=== PATIENT | female | born 2000 | race Caucasian/White ===

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

== ENCOUNTER 2022-01-10 11:28 | Outpatient (CLI) | payer OTHER, SELFPAY ==
[2022-01-16 13:25] LABS: HPV Reflexed? NOT INDICATED
== END 2022-01-10 23:59 | disposition home or self-care (01) ==
PROVIDERS: Visit Provider Obstetrics & Gynecology
DX: Z12.4 Encounter for screening for malignant neoplasm of cervix (principal); Z11.3 Encounter for screening for infections with a predominantly sexual mode of transmission
CPT/HCPCS: 88175; G0145

== ENCOUNTER 2024-03-19 14:00 | Outpatient (RCR) | payer OTHER, SELFPAY ==
--- NOTE | 2023-12-31 15:57 | HP.PTEVAL ---
Patient's Visit Information Visit Information Visit Information: MODE SOTO is a 23 year old F referred to Physical Therapy by NANCY Ferrell with a diagnosis of HIP FLEXOR STRAIN AND PELVIC TENSION. Date of Evaluation: 12/30/23 Physical Therapist: Sara Castillo, PT, Cert MDT Visit Plan Frequency: 1-2x /Week Duration: 2 Months Plan: MANUAL PELVIC FLOOR THERAPY FOR SOFT TISSUE MOBILIZATION AND TRIGGER POINT RELEASE. RELAXATION AND DOWN TRAINING OF PELVIC FLOOR. LEFT HIP MOBILIZATION AND STRENGTHENING. HOME INSTRUCTIONS FOR SELF TREATMENT. POSTURE TRAINING. STRESS INCONTINENCE AND URINARY FREQUENCY EDUCATION AND TRAINING. EDUCATION IN HEALTHY BLADDER HABBITS. 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 Disability: NO Present symptoms: URINARY LEAKING WITH COUGHING AND SNEEZING. FREQUENT URINATION. DIFFICULTY EMPTYING BLADDER. CHIEF COMPLAINT IS PAIN IN URETHRAL AREA WITH URINATION AND IN THE L GROIN AREA WITH WALKING OR HIKING. Present since: WITH UTI ABOUT 3 WKS FOR URETHRAL AREA AND L GROIN. Pain Scale: WORST 6/10, LEAST 0/10 Currently: 0/10 Is it getting better, worse or staying the same: STAYING THE SAME Commenced as a result of: UTI Better WITH: NOTHING FOUND SO FAR. Disturbed sleep: NO Previous history/Previous treatment: PELVIC FLOOR PT FOR PF TIGHTNESS ABOUT 3 YEARS AGO WITH GOOD RESULTS. STATES SHE DID NOT FOLLOW THROUGH WITH RECOMMENDATIONS BECAUSE SYMPTOMS WENT AWAY FOR AWHILE. THE SX'S CAME BACK A FEW MONTHS LATER BUT NOT QUITE BAD AND IT WASN'T CONVENIENT TO GO BACK TO THEREAPY SO HAS JUST DEALT WITH IT. STATES THEY TAUGHT HER HOW TO USE A DIALOTOR AND GAVE HER ONE TO TRY BUT SHE COULDN'T REALLY GET THE HANG OF IT AND GAVE UP. PATIENT REPORTS SAME L GROIN PAIN OFF AND ON ALL OF HER LIFE THAT COMES AND GOES IT PLEASES AND SHE HAS NEVER SOUGHT TREATMENT FOR IT. Treatment this episode: SELF TREATMENT INCLUDING CRANBERRY JUICE FOR UTI. ONE VISIT WITH [facility] AND URINE TEST WAS NEGATIVE. 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 Coughing/sneezing/straining: INTERMITTENTLY POSITIVE FOR URINARY LEAKING Gait: INTERMITTENT L GROIN PAIN How long can you delay the need to urinate: LONG NEEDED TO MAKE IT TO THE BATHROOM IN TIME. Prolapse (Falling out feeling): NO Frequency of Urination: ABOUT EVERY 2 HOURS Ability to stop urine flow: YES Ability to initiate urine stream: ALMOST ALWAYS HAS DIFFICULTY Dyspareunia: NO Bowel Incontinence: NO Accidents: NO Unexplained weight loss: NO Imaging: NO PMH/Recent major surgery: VASAL VAGAL SYNCOPE - BIGGEST TRIGGER IS BLOOD. STATES SHE WILL CANCEL PT IF SHE IS ON HER PERIOD. STATES SHE WILL COME OUT OF IT ON HER OWN IF SHE PASSES OUT AND WE SHOULD JUST CALL HER PARENTS NOT 911. ASTHMA. Objective Objective: Sitting/Standing Posture: NORMAL. NO RELEVANT LATERAL SHIFT BUT PELVIS IS ROTATED WITH L SIDE MORE PROMINANT ANTERIORLY AND LEG LENGTH DISCREPENCY WITH LLE LONGER. Lordosis: NORMAL Active Correction of posture: NE. ABLE TO CORRECT. DOES NOT MAINTAIN. POSTURE STRENGTH - FAIR. Other Observations: INDEP GAIT AND TRANSFERS Sensory deficit: INDIRA LE LIGHT TOUCH SENSATION INTACT AND SYMMETRICAL ROM deficit: INDIRA HIP ADDUCTION AND HIP FLEXOR TIGHTNESS. INDIRA CALF TIGHTNESS. MILD HS TIGHTNESS. Motor deficit: INDIRA HIP IR/ER WEAKNESS 4-/5. Reflexes: 2/3 INDIRA LE'S. Dural Signs: NEGATIVE INDIRA LE'S. Lumbar mvmt loss: flex - MIN ext - MN R SG - NIL L SG - NIL PATIENT DENIES PAIN WITH LUMBAR ROM TESTING. Core strength: FAIR Palpation: HIGH TONE PELVIC FLOOR THROUGHOUT WITH MULTIPLE TRIGGER POINTS WITH INTERNAL MANUAL VAGINAL TESTING ESPECIALLY R LEVATOR ANI. TENDERNESS R LEVATOR ANI. PF WEAKNESS GRADED 3/5 X 3 WITH 4 SEC ENDURANCE. FUNCTIONAL SCREEN: Incontinence Impact Questionnaire Score: 0 Urogenital Distress Inventory Score: 5 Balance/Special Test Scores Lower Extremity Functional Score: 74 Goals Goal 1:: DECREASE C/O PAIN WITH URINATION BY AT LEAST 50% Goal Time Frame: 6-8 Weeks Goal 2:: DECREASE C/O L HIP PAIN BY AT LEAST 80% WITH ALL ADL'S Goal Time Frame: 8-12 Weeks Goal 3:: PATIENT WILL HAVE REDUCED TONE, TRIGGER POINTS AND TENDERNESS IN PELVIC FLOOR BY AT LEAST 50% Goal Time Frame: 6-8 Weeks Goal 4:: DECREASE C/O UI WITH COUGHING AND SNEEZING BY AT LEAST 50% Goal Time Frame: 8-12 Weeks Goal 5:: NORMALIZE VOIDING FREQUENCEY TO EVERY 3 TO 3.5 HOURS Goal Time Frame: 4-6 Weeks Goal 6:: PATIENT WILL BE INDEP WITH A HEP/HOME INSTRUCTIONS FOR CONTINUED IMPROVEMENT ONCE FORMAL PHYSICAL THERAPY CONCLUDES. Goal Time Frame: 8-12 Weeks Rehabilitation Potential Physical Therapy Diagnosis: HIGH TONE PELVIC FLOOR. STRESS UI. CORE WEAKNESS. L HIP PAIN. INDIRA LE TIGHTNESS. URINARY FREQUENCY. Rehabilitation Potential: Good Anticipated Interventions Patient/Client Instruction: Educate patient on: Condition, Plan of Care and Risk Factors For the Purpose of:: To improve self management Therapeutic Exercise to Include: Strength training, Postural training, Flexibilty training, Neuromotor development and Relaxation training For the Purpose of:: To decrease pain, To increase ROM, To improve muscle performance and motor function, To increase tolerance to activity/condition/position, To improve ability of physical actions for home/community/work/leisure, To decrease soft tissue restriction and To increase flexibility/ROM Manual Therapy Techniques to Include: Trigger point massage and Soft tissue mobilization For the Purpose of:: To decrease pain, To improve muscle performance and motor function, To decrease soft tissue restriction and To increase flexibility/ROM Text: Thank you for the opportunity to evaluate your patient. For Medicare and Medicare HMO plans, please review the plan of care and approve it. It will need to be FAXED BACK to us at [phone] for Medicare purposes. For Medicare only, by signing this I certify the plan of care. Please let me know if there are questions or concerns regarding this plan of care. Physician Signature: Date:
--- NOTE | 2024-03-19 14:20 | HP.PTDCSUM ---
Discharge Summary D/C summary: It has been my pleasure to treat MODE SOTO referred by NANCY Ferrell, with the diagnosis of HIP FLEXOR STRAIN AND PELVIC TENSION for a total of 11 visit(s). Discharge Date: 03/19/24 Please see the following information for a summary of their discharge status. Subjective Subjective: PATIENT REPORTS HER PROGRAM IS GOING GOOD. SHE IS IN A ROUTINE, SHE ISN'T SORE AND IT ISN'T TAKING UP TOO MUCH TIME. SHE DENIES GROIN PAIN, DIFFICULTY INITIATING URINATION AND URINARY INCONTINENCE. Overall Improvement % Improvement: 100 Objective Objective/Function: ALL GOALS MET. THIS PATIENT HAS DONE REALLY WELL WITH PT AND IS INDEP WITH A GYM PROGRAM AT [employer]. SHE IS AGREEABLE TO DISCHARGE. FUNCTIONAL SCREEN: Incontinence Impact Questionnaire Score: 0 Urogenital Distress Inventory Score: 0 Goals Goal 1:: DECREASE C/O PAIN WITH URINATION BY AT LEAST 50% Goal Progress: Goal Met Goal 2:: DECREASE C/O L HIP PAIN BY AT LEAST 80% WITH ALL ADL'S Goal Progress: Goal Met Goal 3:: PATIENT WILL HAVE REDUCED TONE, TRIGGER POINTS AND TENDERNESS IN PELVIC FLOOR BY AT LEAST 50% Goal 4:: DECREASE C/O UI WITH COUGHING AND SNEEZING BY AT LEAST 50% Goal Progress: Goal Met Goal 5:: NORMALIZE VOIDING FREQUENCEY TO EVERY 3 TO 3.5 HOURS Goal Progress: Goal Met Goal 6:: PATIENT WILL BE INDEP WITH A HEP/HOME INSTRUCTIONS FOR CONTINUED IMPROVEMENT ONCE FORMAL PHYSICAL THERAPY CONCLUDES. Goal Progress: Goal Met Plan Plan: D/C D/C Information d/c sentence: If there are questions or concerns regarding this patient's physical therapy, please feel free to call me at [phone]. Thank you for the referral of this patient. Sincerely, Sara Castillo, PT, Cert MDT Balance/Gait/Functional tests Balance/Special Test Scores Lower Extremity Functional Score: 80 Improvement % Improvement: 100
== END 2024-03-19 19:00 | disposition home or self-care (01) ==
LOC: PT 14:00
PROVIDERS: PCP Nurse Practitioner Family; Referring Provider Nurse Practitioner Family; Visit Provider Nurse Practitioner Family
DX: S73.199D Other sprain of unspecified hip, subsequent encounter (principal)
CPT/HCPCS: 97035; 97162; 97530